=== PATIENT | female | born 1995 | race Caucasian/White ===

== ENCOUNTER 2017-07-19 17:17 | Emergency (ER) | payer BC ==
[~2017-07-19] VITALS: Ht 152.4 cm; Wt 97.2 kg
[~2017-07-19 17:17] MED LIST: DEXILANT60 MG PO; FIORICET,ESG1 TABLET PO; LO LOESTRIN FE1 EACH; NEXIUM20 MG PO; PAROXETINE HCL10 MG PO; RIZATRIPTAN10 MG PO
[2017-07-19] MEDS ORDERED: VALIUM2 MG PO (17:53)
[2017-07-19] MEDS ORDERED: PREDNISONE10 MG PO (17:53)
[2017-07-19 18:15] VITALS: BP 126/81
== END 2017-07-19 18:15 | disposition home or self-care (01) ==
LOC: EME 17:17
DX: M54.5 Low back pain (principal); J45.909 Unspecified asthma, uncomplicated
CPT/HCPCS: 99281; 99283